=== PATIENT | female | born 1945 | race Two or more races ===

== ENCOUNTER 2018-10-12 09:15 | Inpatient (IN) | payer MEDICARE, OTHER | END 2018-10-14 16:00 | disposition left against medical advice (07) | LOC: WEST WING 10-13 16:16 → ER 09:15 → TELE 13:53 → TELE-WESTW 18:52 | DX: R07.89 Other chest pain (principal); M19.90 Unspecified osteoarthritis, unspecified site; E87.8 Other disorders of electrolyte and fluid balance, not elsewhere classified; F32.9 Major depressive disorder, single episode, unspecified ==